=== PATIENT | female | born 1965 | race Caucasian/White ===

== ENCOUNTER 2025-02-17 21:30 | Inpatient (IN) | payer MEDICAID, OTHER ==
[~2025-02-17] VITALS: Ht 165.1 cm; Wt 63.5 kg
[2025-02-17] MEDS: METOCLOPRAMIDE HCL 10 MG/2 ML VIAL IV ONE (22:00)
[2025-02-17] MEDS ORDERED: PANTOPRAZOLE 40 MG VIAL ONE (22:01)
[2025-02-17] MEDS ORDERED: METOCLOPRAMIDE HCL 10 MG/2 ML VIAL ONE (22:01)
[2025-02-17] MEDS ORDERED: OCTREOTIDE 50 MCG/ML AMPUL ONE (22:01)
[2025-02-17] MEDS ORDERED: CEFTRIAXONE 1GM BAG (ER ONLY) 50 ML IV ONE (22:01)
[2025-02-17] MEDS: OCTREOTIDE 50 MCG/ML AMPUL IV ONE (22:35)
[2025-02-17] MEDS: PANTOPRAZOLE 80 MG in IV NS 0.9% 100 ML IV ONE (22:35)
[2025-02-17 22:39] LABS: CALCIUM, SERUM 9.2 mg/dL (8.5-10.1); CARBON DIOXIDE 17 mmol/L (21-32); CHLORIDE 104 mmol/L (98-107); GLUCOSE 101 mg/dL (74-106); POTASSIUM 3.9 mmol/L (3.5-5.1); SODIUM SERUM 136 mmol/L (136-145); UREA NITROGEN, BLOOD 12 mg/dL (7-18)
[2025-02-17 22:45] LABS: ALANINE AMINOTRANSFERASE 19 U/L (12-78); ALBUMIN 2.7 g/dL (3.4-5.0); ALKALINE PHOSPHATASE 159 U/L (46-116); ASPARTATE AMINOTRANSFERASE 59 U/L (15-37); BILIRUBIN,DIRECT 1.1 mg/dL (0.0-0.2); LIPASE 77 U/L (16-77); TOTAL PROTEIN, SERUM 6.8 g/dL (6.4-8.2)
[2025-02-17 22:53] LABS: LACTIC ACID 4.2 mmol/L (0.4-2.0)
[2025-02-17 23:00] LABS: BASOPHILS % (AUTO) 0.6 % (0.0-2.0); EOSINOPHILS # (AUTO) 0.1 K/uL (0.0-0.7); EOSINOPHILS % (AUTO) 1.3 % (0.0-6.0); HEMATOCRIT 27 % (33-45); HEMOGLOBIN 9.1 g/dL (11.5-14.8); LYMPHOCYTES # (AUTO) 0.5 K/uL (0.8-4.8); LYMPHOCYTES % (AUTO) 9.2 % (20.0-44.0); MEAN CORPUSCULAR HEMOGLOBIN 34 PG (26.0-33.0); MEAN CORPUSCULAR HGB CONC 33 g/dl (31.0-36.0); MEAN CORPUSCULAR VOLUME 102 fL (82-100); MONOCYTES # (AUTO) 0.5 K/uL (0.1-1.30); NEUTROPHILS # (AUTO) 3.8 K/uL (1.8-8.9); NEUTROPHILS % (AUTO) 77.9 % (43.0-81.0); PLATELET COUNT (AUTO) 276 K/uL (150-450); RED BLOOD CELL COUNT(AUTO) 2.68 MIL/uL (4.0-5.2); RED CELL DISTRIBUTION WIDTH 27.8 % (11.5-15.0); WHITE BLOOD COUNT (AUTO) 4.9 K/uL (4.3-11.0)
[2025-02-17 23:08] LABS: INR 1.31 (0.91-1.10); PARTIAL THROMBOPLASTIN TIME 25.1 SEC (24.3-34.3); PROTHROMBIN TIME 13.6 SECS (9.2-11.1)
[2025-02-17] MEDS ORDERED: MORPHINE SULFATE INJ 4 MG/ML DISP.SYRIN ONE (23:25)
[2025-02-17] MEDS: CEFTRIAXONE 1GM BAG (ER ONLY) 1 GM/50 ML PIGGYBACK IV ONE (23:30)
[2025-02-17] MEDS: MORPHINE SULFATE INJ 2 MG/ML DISP.SYRIN IV ONE (23:31)
[2025-02-17] MEDS: PANTOPRAZOLE 80 MG in IV NS 0.9% 500 ML IV ONE (23:50)
[2025-02-18] VITALS (46 sets, daily range): BP systolic 87–130; BP diastolic 37–76; TEMP 98.2–98.6; O2SAT 92–99
[2025-02-18] MEDS ORDERED: ACETAMINOPHEN 325 MG TABLET PO PRN (00:30)
[2025-02-18] MEDS ORDERED: ONDANSETRON HCL/PF 4 MG/2 ML VIAL IV PRN (00:30)
[2025-02-18 00:41] LABS: HEMOGLOBIN 8.8 g/dL (11.5-14.8)
[2025-02-18] MEDS: OCTREOTIDE 500 MCG/ML VIAL ONE (02:36)
[2025-02-18] MEDS: OCTREOTIDE 100 MCG/ML VIAL ONE (02:43)
[2025-02-18] MEDS ORDERED: OCTREOTIDE 100 MCG/ML VIAL ONE (02:56)
[2025-02-18] MEDS ORDERED: PANTOPRAZOLE 80 MG in IV NS 0.9% 500 ML IV SCH ×2 (04:22→14:22)
[2025-02-18] MEDS: PANTOPRAZOLE 80 MG in IV NS 0.9% 500 ML IV SCH ×2 (04:22→08:14)
[2025-02-18] MEDS: OCTREOTIDE 1,250 MCG in IV NS 0.9% 247.5 ML IV SCH ×3 (04:25→21:10)
[2025-02-18 08:14] LABS: HEMOGLOBIN 9.2 g/dL (11.5-14.8)
[2025-02-18] MEDS: LACTULOSE 10 G/15 ML UDC (PYXIS) PO SCH (08:21)
[2025-02-18] MEDS: RIFAXIMIN 550 MG TABLET PO SCH (08:21)
[2025-02-18] MEDS: FUROSEMIDE 20 MG/2 ML VIAL IV SCH (08:21)
[2025-02-18] MEDS: CARVEDILOL 3.125 MG TABLET PO SCH (08:32)
[2025-02-18] MEDS: SPIRONOLACTONE 25 MG TABLET PO SCH (08:34)
[2025-02-18] MEDS: CEFTRIAXONE 1 G in IV D5W 50 ML IV SCH (08:36)
[2025-02-18] MEDS: PROPRANOLOL LA 60 MG CAP.SA.24H PO SCH (08:36)
[2025-02-18] MEDS ORDERED: SPIR50TA5 PO (08:50)
[2025-02-18] MEDS ORDERED: PROP10TA10 PO (08:50)
[2025-02-18] MEDS ORDERED: RIFA550T PO (08:50)
[2025-02-18] MEDS ORDERED: TRAZ-257 PO (08:50)
[2025-02-18] MEDS ORDERED: LACT10SO3 PO (08:50)
[2025-02-18 09:20] LABS: CALCIUM, SERUM 7.2 mg/dL (8.5-10.1); CREATININE 0.9 mg/dL (0.6-1.3)
[2025-02-18] MEDS ORDERED: ANESTHESIA TRAY IN PYXIS 1 EA TRAY MC ONE (09:53)
[2025-02-18 09:56] LABS: APPEARANCE,URINE SLIGHTLY CLOUDY (CLEAR); BILIRUBIN,URINE 1+ (NEGATIVE); BLOOD, URINE NEGATIVE Ery/uL (NEGATIVE); COLOR,URINE YELLOW (YELLOW); KETONES,URINE NEGATIVE (NEGATIVE); LEUKOCYTE ESTERASE ,URINE NEGATIVE (NEGATIVE); NITRITE, URINE POSITIVE (NEGATIVE); PH,URINE 5.5 (5.0-8.0); PROTEIN,URINE 1+ mg/dl (NEGATIVE); UGLUCOSE TRACE mg/dL (NEGATIVE)
[2025-02-18 10:10] LABS: BACTERIA,URINE Many /HPF (None Seen)
[2025-02-18 10:11] LABS: ADD URINE CULTURE YES
[2025-02-18 10:12] LABS: MUCUS,URINE Many /LPF (None Seen); SQUAMOUS EPITHELIAL CELL,UR Few /HPF (None Seen)
[2025-02-18 10:13] LABS: FINE GRANULAR CASTS,URINE Few /LPF (None Seen)
[2025-02-18 12:40] LABS: HEMOGLOBIN 10.3 g/dL (11.5-14.8)
[2025-02-18] MEDS: SOD FERRIC GLUC 125 MG in IV NS 0.9% 100 ML IV SCH (14:07)
[2025-02-18] MEDS: MIDODRINE HCL (5MG) 5 MG TABLET PO SCH (19:03)
[2025-02-18] MEDS: NOREPINEPHRINE 8 MG in IV D5W 242 ML IV PRN (20:48)
[2025-02-19] VITALS (77 sets, daily range): BP systolic 62–130; BP diastolic 28–74; TEMP 98.4–98.7; O2SAT 92–99
[2025-02-19 02:57] LABS: APPEARANCE,SPUN,BODY FLUID CLEAR (CLEAR); TOTAL VOLUME,BODY FLUID 8000 mL; WBC, BODY FLUID 1648 /cu. mm. (0-200)
[2025-02-19 02:58] LABS: MACROPHAGES, BODY FLUID 0; MONOCYTES,BODY FLUID 10 %
[2025-02-19 02:59] LABS: PROTEIN, BODY FLUID 1.2 G/DL
[2025-02-19] MEDS: MORPHINE SULFATE INJ 2 MG/ML DISP.SYRIN IV PRN (03:54)
[2025-02-19 04:36] LABS: HEMOGLOBIN 8.9 g/dL (11.5-14.8)
[2025-02-19 04:38] LABS: BASOPHILS # (AUTO) 0.1 K/uL (0.0-0.2); BASOPHILS % (AUTO) 0.5 % (0.0-2.0); EOSINOPHILS % (AUTO) 0.1 % (0.0-6.0); HEMATOCRIT 26 % (33-45); HEMOGLOBIN 8.9 g/dL (11.5-14.8); LYMPHOCYTES # (AUTO) 1.5 K/uL (0.8-4.8); LYMPHOCYTES % (AUTO) 14.7 % (20.0-44.0); MEAN CORPUSCULAR HEMOGLOBIN 34 PG (26.0-33.0); MEAN CORPUSCULAR HGB CONC 34 g/dl (31.0-36.0); MEAN CORPUSCULAR VOLUME 99 fL (82-100); MONOCYTES # (AUTO) 0.9 K/uL (0.1-1.30); NEUTROPHILS # (AUTO) 7.8 K/uL (1.8-8.9); NEUTROPHILS % (AUTO) 75.7 % (43.0-81.0); PLATELET COUNT (AUTO) 136 K/uL (150-450); RED BLOOD CELL COUNT(AUTO) 2.63 MIL/uL (4.0-5.2); WHITE BLOOD COUNT (AUTO) 10.3 K/uL (4.3-11.0)
[2025-02-19 04:52] LABS: CALCIUM, SERUM 7.9 mg/dL (8.5-10.1); CREATININE 1.3 mg/dL (0.6-1.3); POTASSIUM 3.9 mmol/L (3.5-5.1)
[2025-02-19 04:57] LABS: ALBUMIN 1.8 g/dL (3.4-5.0); TOTAL PROTEIN, SERUM 5.6 g/dL (6.4-8.2)
[2025-02-19 05:02] LABS: LACTIC ACID 1.6 mmol/L (0.4-2.0)
[2025-02-19 07:29] LABS: HEMOGLOBIN 9.9 g/dL (11.5-14.8)
[2025-02-19] MEDS: ALBUMIN 25% 12.5 GM/50 ML BOTTLE IV ONE (09:14)
[2025-02-19] MEDS ORDERED: ALBUMIN 5% 25 GM in PREMIX 1 EA IV ONE (09:30)
[2025-02-19] MEDS: CEFTRIAXONE 2 G in IV D5W 100 ML IV SCH (09:38)
[2025-02-19] MEDS: ALBUMIN 25% 25 GM in PREMIX 1 EA IV ONE (10:11)
[2025-02-19 19:18] LABS: OCCULT BLOOD STOOL NEGATIVE (NEGATIVE)
[2025-02-19] MEDS: PANTOPRAZOLE 40 MG VIAL IV SCH (20:57)
[2025-02-20] VITALS (69 sets, daily range): BP systolic 85–142; BP diastolic 37–90; TEMP 97–99; O2SAT 92–99
[2025-02-20 04:25] LABS: BASOPHILS % (AUTO) 0.1 % (0.0-2.0); EOSINOPHILS # (AUTO) 0.1 K/uL (0.0-0.7); EOSINOPHILS % (AUTO) 1.2 % (0.0-6.0); HEMATOCRIT 25 % (33-45); HEMOGLOBIN 8.6 g/dL (11.5-14.8); LYMPHOCYTES # (AUTO) 1.5 K/uL (0.8-4.8); LYMPHOCYTES % (AUTO) 13.3 % (20.0-44.0); MEAN CORPUSCULAR HEMOGLOBIN 34 PG (26.0-33.0); MEAN CORPUSCULAR HGB CONC 35 g/dl (31.0-36.0); MEAN CORPUSCULAR VOLUME 98 fL (82-100); MONOCYTES # (AUTO) 1.1 K/uL (0.1-1.30); MONOCYTES % (AUTO) 9.8 % (2.0-12.0); NEUTROPHILS # (AUTO) 8.7 K/uL (1.8-8.9); NEUTROPHILS % (AUTO) 75.6 % (43.0-81.0); PLATELET COUNT (AUTO) 160 K/uL (150-450); RED BLOOD CELL COUNT(AUTO) 2.54 MIL/uL (4.0-5.2); RED CELL DISTRIBUTION WIDTH 25.3 % (11.5-15.0); WHITE BLOOD COUNT (AUTO) 11.5 K/uL (4.3-11.0)
[2025-02-20 04:59] LABS: ALBUMIN 2.2 g/dL (3.4-5.0); CREATININE 1.1 mg/dL (0.6-1.3); TOTAL PROTEIN, SERUM 5.3 g/dL (6.4-8.2)
[2025-02-20 05:10] LABS: POTASSIUM 2.7 mmol/L (3.5-5.1)
[2025-02-20] MEDS: POTASSIUM CL. PREMIX PERIPHER. 50 ML IV SCH (06:23)
[2025-02-20] MEDS: LACTULOSE 10 G/15 ML UDC (PYXIS) PO SCH (09:12)
[2025-02-20] MEDS: POTASSIUM CHLORIDE 20 MEQ TAB.PRT.SR PO ONE (09:13)
[2025-02-21] VITALS (61 sets, daily range): BP systolic 92–133; BP diastolic 43–83; TEMP 97–98.7; O2SAT 92–98
[2025-02-21 04:24] LABS: BASOPHILS % (AUTO) 0.4 % (0.0-2.0); EOSINOPHILS # (AUTO) 0.2 K/uL (0.0-0.7); EOSINOPHILS % (AUTO) 1.4 % (0.0-6.0); HEMATOCRIT 28 % (33-45); HEMOGLOBIN 9.7 g/dL (11.5-14.8); LYMPHOCYTES # (AUTO) 1.6 K/uL (0.8-4.8); LYMPHOCYTES % (AUTO) 14.4 % (20.0-44.0); MEAN CORPUSCULAR HEMOGLOBIN 34 PG (26.0-33.0); MEAN CORPUSCULAR HGB CONC 34 g/dl (31.0-36.0); MEAN CORPUSCULAR VOLUME 99 fL (82-100); MONOCYTES # (AUTO) 1.4 K/uL (0.1-1.30); MONOCYTES % (AUTO) 12.7 % (2.0-12.0); NEUTROPHILS % (AUTO) 71.1 % (43.0-81.0); PLATELET COUNT (AUTO) 152 K/uL (150-450); RED BLOOD CELL COUNT(AUTO) 2.88 MIL/uL (4.0-5.2); RED CELL DISTRIBUTION WIDTH 24.8 % (11.5-15.0); WHITE BLOOD COUNT (AUTO) 11.3 K/uL (4.3-11.0)
[2025-02-21 04:45] LABS: ALBUMIN 2.2 g/dL (3.4-5.0); BILIRUBIN,TOTAL 3.6 mg/dL (0.2-1.0); CALCIUM, SERUM 8.1 mg/dL (8.5-10.1); CREATININE 0.8 mg/dL (0.6-1.3); MAGNESIUM 1.3 mg/dL (1.8-2.4); POTASSIUM 3.6 mmol/L (3.5-5.1); TOTAL PROTEIN, SERUM 5.5 g/dL (6.4-8.2)
[2025-02-21] MEDS: Magnesium 1GM/D5W 100ML PREMIX 100 ML IV SCH (08:48)
[2025-02-21] MEDS: PANTOPRAZOLE 40 MG TABLET.DR PO SCH (09:10)
[2025-02-22] VITALS (29 sets, daily range): BP systolic 92–126; BP diastolic 46–66; TEMP 98.1–98.9; O2SAT 93–100
[2025-02-22 04:32] LABS: BASOPHILS % (AUTO) 0.3 % (0.0-2.0); EOSINOPHILS # (AUTO) 0.2 K/uL (0.0-0.7); EOSINOPHILS % (AUTO) 1.7 % (0.0-6.0); HEMATOCRIT 26 % (33-45); LYMPHOCYTES # (AUTO) 1.3 K/uL (0.8-4.8); LYMPHOCYTES % (AUTO) 12.6 % (20.0-44.0); MEAN CORPUSCULAR HEMOGLOBIN 35 PG (26.0-33.0); MEAN CORPUSCULAR HGB CONC 35 g/dl (31.0-36.0); MEAN CORPUSCULAR VOLUME 99 fL (82-100); MONOCYTES # (AUTO) 1.4 K/uL (0.1-1.30); MONOCYTES % (AUTO) 13.6 % (2.0-12.0); NEUTROPHILS # (AUTO) 7.3 K/uL (1.8-8.9); NEUTROPHILS % (AUTO) 71.8 % (43.0-81.0); PLATELET COUNT (AUTO) 131 K/uL (150-450); RED BLOOD CELL COUNT(AUTO) 2.61 MIL/uL (4.0-5.2); RED CELL DISTRIBUTION WIDTH 24.1 % (11.5-15.0); WHITE BLOOD COUNT (AUTO) 10.1 K/uL (4.3-11.0)
[2025-02-22 04:37] LABS: CALCIUM, SERUM 8.3 mg/dL (8.5-10.1); CREATININE 0.8 mg/dL (0.6-1.3); MAGNESIUM 1.7 mg/dL (1.8-2.4); POTASSIUM 3.5 mmol/L (3.5-5.1)
[2025-02-22] MEDS: SPIRONOLACTONE 25 MG TABLET PO SCH (10:09)
[2025-02-22] MEDS: Magnesium 1GM/D5W 100ML PREMIX 100 ML IV SCH (10:10)
[2025-02-22] MEDS: FUROSEMIDE 40 MG TABLET PO SCH (10:10)
[2025-02-22] MEDS: MIDODRINE HCL (5MG) 5 MG TABLET PO SCH (12:40)
[2025-02-22] MEDS: LACTULOSE 10 G/15 ML UDC (PYXIS) PO SCH (16:18)
[2025-02-23 04:00] VITALS: BP 95/53; TEMP 97.7; O2SAT 99
[2025-02-23 06:33] LABS: BASOPHILS % (AUTO) 0.2 % (0.0-2.0); EOSINOPHILS # (AUTO) 0.2 K/uL (0.0-0.7); EOSINOPHILS % (AUTO) 2.1 % (0.0-6.0); HEMATOCRIT 26 % (33-45); HEMOGLOBIN 9.3 g/dL (11.5-14.8); LYMPHOCYTES # (AUTO) 1.3 K/uL (0.8-4.8); LYMPHOCYTES % (AUTO) 13.1 % (20.0-44.0); MEAN CORPUSCULAR HEMOGLOBIN 35 PG (26.0-33.0); MEAN CORPUSCULAR HGB CONC 35 g/dl (31.0-36.0); MEAN CORPUSCULAR VOLUME 100 fL (82-100); MONOCYTES # (AUTO) 1.3 K/uL (0.1-1.30); NEUTROPHILS # (AUTO) 7.1 K/uL (1.8-8.9); NEUTROPHILS % (AUTO) 71.6 % (43.0-81.0); PLATELET COUNT (AUTO) 126 K/uL (150-450); RED BLOOD CELL COUNT(AUTO) 2.64 MIL/uL (4.0-5.2); RED CELL DISTRIBUTION WIDTH 23.7 % (11.5-15.0); WHITE BLOOD COUNT (AUTO) 9.9 K/uL (4.3-11.0)
[2025-02-23 06:46] LABS: SERUM AMMONIA 32 umol/L (11-32)
[2025-02-23 06:55] LABS: ALANINE AMINOTRANSFERASE < 6 U/L (12-78); ALKALINE PHOSPHATASE 91 U/L (46-116); ASPARTATE AMINOTRANSFERASE 26 U/L (15-37); BILIRUBIN,TOTAL 3.2 mg/dL (0.2-1.0); CALCIUM, SERUM 8.2 mg/dL (8.5-10.1); CARBON DIOXIDE 22 mmol/L (21-32); CHLORIDE 98 mmol/L (98-107); CREATININE 0.7 mg/dL (0.6-1.3); GLUCOSE 102 mg/dL (74-106); MAGNESIUM 1.6 mg/dL (1.8-2.4); POTASSIUM 3.2 mmol/L (3.5-5.1); SODIUM SERUM 130 mmol/L (136-145); TOTAL PROTEIN, SERUM 5.4 g/dL (6.4-8.2); UREA NITROGEN, BLOOD 9 mg/dL (7-18)
[2025-02-23 08:44] VITALS: BP 111/60
[2025-02-23] MEDS: MAGNESIUM OXIDE 400 MG TABLET PO ONE (09:46)
[2025-02-23] MEDS: POTASSIUM CHLORIDE 20 MEQ TAB.PRT.SR PO ONE (09:46)
[2025-02-23] MEDS ORDERED: POTASSIUM CHLORIDE 20 MEQ TAB.PRT.SR PO ONE (10:00)
[2025-02-23] MEDS ORDERED: POTASSIUM CHLORIDE 20 MEQ TAB.PRT.SR PO SCH (10:00)
[2025-02-23] MEDS ORDERED: PANT40TA49 PO (10:13)
[2025-02-23] MEDS ORDERED: MIDO5TAB4 PO (10:13)
[2025-02-23] MEDS ORDERED: FURO40TA5 PO (10:13)
[2025-02-23] MEDS ORDERED: LACT10SO58 PO (10:13)
[2025-02-23] MEDS ORDERED: RIFA550T PO (10:13)
[2025-02-23] MEDS ORDERED: SPIR25TA6 PO (10:13)
[2025-02-23] MEDS ORDERED: PROP60CA2 PO (10:13)
== END 2025-02-23 12:40 | disposition home health service (06) | DRG 280 ==
LOC: ER 21:32 → ICU 02-18 00:51 → MEDSG1 02-22 12:31
PROVIDERS: ADMIT Internal Medicine; ATTEND Internal Medicine
PROC: 30233N1 Transfusion of Nonautologous Red Blood Cells into Peripheral Vein, Percutaneous Approach (ICD-10-PCS; 2025-02-18)
PROC: 02HV33Z Insertion of Infusion Device into Superior Vena Cava, Percutaneous Approach (ICD-10-PCS; 2025-02-18)
PROC: B548ZZA Ultrasonography of Superior Vena Cava, Guidance (ICD-10-PCS; 2025-02-18)
PROC: 0W9G3ZZ Drainage of Peritoneal Cavity, Percutaneous Approach (ICD-10-PCS; 2025-02-18)
PROC: 06L38CZ Occlusion of Esophageal Vein with Extraluminal Device, Via Natural or Artificial Opening Endoscopic (ICD-10-PCS; principal; 2025-02-18 07:30)
DX: K70.31 Alcoholic cirrhosis of liver with ascites (principal); I85.11 Secondary esophageal varices with bleeding; K65.2 Spontaneous bacterial peritonitis; E44.0 Moderate protein-calorie malnutrition; K76.6 Portal hypertension; E88.09 Other disorders of plasma-protein metabolism, not elsewhere classified; D62 Acute posthemorrhagic anemia; K31.89 Other diseases of stomach and duodenum; K76.82 Hepatic encephalopathy; N39.0 Urinary tract infection, site not specified; Z88.0 Allergy status to penicillin; F17.210 Nicotine dependence, cigarettes, uncomplicated; R33.9 Retention of urine, unspecified; F10.21 Alcohol dependence, in remission; R91.8 Other nonspecific abnormal finding of lung field; Z68.23 Body mass index [BMI] 23.0-23.9, adult
CPT/HCPCS: 36415; 36569; 49083; 71045-TC; 71250-TC; 80048-TC; 80053-TC; 80076-TC; 81001; 82040-TC; 82140-TC; 82272-TC; 83605-TC; 83690-TC; 83735-TC; 84484-TC; 85025-TC; 85027-TC; 85730-TC; 86850-TC; 87040-TC; 87070-TC; 87075-TC; 87081-TC; 87086-TC; 88108-TC; 88305-TC; 88312-TC; 89051-TC; 97112-TC; 97116-TC; 97530-TC; A4216; A4223; A6403; G0378; J0696; J1938; J2270; J2354; J2470; J2704; J2765; J2916; J3475; J3480; J7030; J7040; J7050; J7060; P9016; P9045; P9047